=== PATIENT | female | born 1985 | race Two or more races ===

== ENCOUNTER 2016-10-24 13:56 | Emergency (ER) | payer OTHER ==
[~2016-10-24] VITALS: Ht 170.2 cm; Wt 90.7 kg
[2016-10-24 14:12] VITALS: BP 137/73
== END 2016-10-24 16:09 | disposition home or self-care (01) ==
LOC: ER 13:56
DX: J20.9 Acute bronchitis, unspecified (principal); J45.909 Unspecified asthma, uncomplicated